=== PATIENT | female | born 1985 | race Caucasian/White ===

== ENCOUNTER 2024-04-23 11:51 | Emergency (ER) | payer MEDICAID ==
[~2024-04-23] VITALS: Ht 157.5 cm; Wt 56.0 kg
[2024-04-23 12:07] VITALS: BP 171/104; PULSE 75; TEMP 97.3; O2SAT 98
[2024-04-23] MEDS ORDERED: NAPR-56 PO (12:29)
[2024-04-23] MEDS ORDERED: CHLO473M2 PO (12:29)
[2024-04-23] MEDS ORDERED: CLIN-97 PO (12:29)
[2024-04-23] MEDS: clindamycin 150mg capsule PO ONE (12:47)
[2024-04-23] MEDS: ketorolac trometh. 30mg/ml inj. IM ONE (12:48)
[2024-04-23 13:03] VITALS: RESP 16
== END 2024-04-23 13:09 | disposition home or self-care (01) ==
LOC: ER 11:51
DX: K04.7 Periapical abscess without sinus (principal); Z79.1 Long term (current) use of non-steroidal anti-inflammatories (NSAID); Z79.899 Other long term (current) drug therapy; Z79.2 Long term (current) use of antibiotics
CPT/HCPCS: 96372; 99283; J1885

== ENCOUNTER 2024-05-15 14:02 | Outpatient (CLI) | payer MEDICAID ==
[~2024-05-15 14:02] MED LIST: CHLO473M2 PO; CLIN-97 PO; NAPR-56 PO
== END 2024-05-15 23:59 | disposition home or self-care (01) ==
LOC: RAD 14:02
PROVIDERS: ATTEND Physician Assistant
DX: I51.7 Cardiomegaly (principal); F11.20 Opioid dependence, uncomplicated
CPT/HCPCS: 93005